=== PATIENT | male | born 1970 | race Caucasian/White ===

== ENCOUNTER 2024-08-05 10:32 | Outpatient (CLI) | payer OTHER, SELFPAY ==
[2024-08-05 15:50] LABS: Chlamydia DNA Amplified* NOT DETECTED (No Detected); GC DNA Amplified* NOT DETECTED (No Detected)
== END 2024-08-05 10:33 | disposition home or self-care (01) ==
PROVIDERS: Visit Provider Physician Assistant Medical
DX: R30.0 Dysuria (principal); R39.15 Urgency of urination
CPT/HCPCS: 87086; 87491; 87591

== ENCOUNTER 2024-10-16 13:56 | Outpatient (CLI) | payer OTHER, SELFPAY | END 2024-10-16 13:57 | disposition home or self-care (01) | LOC: FRMREF 13:56 | PROVIDERS: Visit Provider Physician Assistant Medical | DX: R20.2 Paresthesia of skin (principal); R63.5 Abnormal weight gain; Z12.5 Encounter for screening for malignant neoplasm of prostate | CPT/HCPCS: 80053; 80061; 82607; 84443; G0103 ==

== ENCOUNTER 2024-11-12 09:54 | Outpatient (CLI) | payer OTHER, SELFPAY ==
--- NOTE | 2024-11-19 13:28 | W.PM.SLEEP ---
Sleep Study Details Details Interpreting Provider: Melchor Date of Sleep Study: 11/12/24 Sleep Study Details: STUDY TYPE:? Home unattended ? BMI:? Not recorded ORDERING PROVIDER:Robert Reinoso INDICATION:? Concern about sleep apnea ? SLEEP SUMMARY:? 323 minutes monitored RESPIRATORY SUMMARY:? AHI 38.3 Low oxygen 74 41.4% of study oxygen less than 90% Snoring 99.5% PERIODIC LIMB MOVEMENTS OF SLEEP:? Not recorded CARDIAC:? Range 48-122, mean 84.7 beats per minute IMPRESSION:? Severe obstructive sleep apnea with significant hypo oxygenation but no central apneas were noted RECOMMENDATION: AutoSet CPAP pressure 4-17.
== END 2024-11-12 09:55 | disposition home or self-care (01) ==
PROVIDERS: PCP Physician Assistant Medical; Visit Provider Otolaryngology
DX: G47.33 Obstructive sleep apnea (adult) (pediatric) (principal)
CPT/HCPCS: 95806

== ENCOUNTER 2025-03-18 15:02 | Outpatient (CLI) | payer OTHER, SELFPAY ==
--- NOTE | 2025-03-18 16:00 | CRLHL7_ITS ---
For Patients: As a result of the Century Cures Act, medical imaging exams and procedure reports are released immediately into your electronic medical record. You may view this report before your referring provider. If you have questions, please contact your health care provider. Indication: ABNORMAL CXR, CHEST PAIN Technique: Noncontrast CT chest Please note that all CT scans at this facility use dose modulation, iterative reconstruction, and/or weight-based dosing when appropriate to reduce radiation dose to as low as reasonably achievable. Comparison: Chest x-ray 02/26/2025 Findings: Incidental calcified granuloma in the anterior right upper lobe and calcified precarinal lymph node representing sequela of granulomatous disease. No adenopathy. Upper abdomen is unremarkable. No pleural or pericardial effusion. Thyroid is normal. No infiltrate, fibrosis, pulmonary edema or pneumothorax. No suspicious pulmonary nodule. 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 No fracture. Impression: No acute cardiopulmonary disease. Please note that all CT scans at this facility use dose modulation, iterative reconstruction, and/or weight-based dosing when appropriate to reduce radiation dose to as low as reasonably achievable. Dictated by Saulo Moore MD @ 03/18/2025 3:28:43 PM (Electronically Signed)
== END 2025-03-18 15:03 | disposition home or self-care (01) ==
LOC: CT 15:03
PROVIDERS: PCP Physician Assistant Medical; Visit Provider Physician Assistant Medical
DX: R07.89 Other chest pain (principal); R06.02 Shortness of breath
CPT/HCPCS: 71250